=== PATIENT | female | born 1990 ===

== ENCOUNTER 2017-04-05 19:39 | Inpatient (IN) | payer MEDICAID, SELFPAY ==
[2017-04-05 19:48] VITALS: BMI 33.5
[2017-04-05] MEDS ORDERED: Oxytocin 30 UNITS in Sodium Chloride 0.9% 500 ML IV ONE (19:52)
[2017-04-05] MEDS ORDERED: Lactated Ringer's 1,000 ML IV SCH (20:00)
[2017-04-05 20:55] LABS: BASO # 0.1 K/uL (0.0-0.2); BASO % 1.1 % (0.0-2.0); EOS # 0.1 K/uL (0.0-0.7); EOS % 0.7 % (0.0-4.0); HEMATOCRIT 36.5 % (34.0-47.0); MEAN CELL VOLUME 98.2 fl (81.0-99.0); MEAN CORPUSCULAR HEMOGLOBIN 33.4 pg (27.0-31.0); MEAN PLATELET VOLUME 9.7 fl (7.2-11.7); MONO # 0.6 K/uL (0.0-0.8); MONO % 5.6 % (0.0-10.0); NEUT # 7.6 K/uL (1.8-7.0); NEUT % 73.6 % (50.0-75.0); RED CELL DISTRIBUTION WIDTH 13.5 % (11.5-14.5); WHITE BLOOD COUNT 10.4 K/uL (4.8-10.8)
[2017-04-05] MEDS: Lactated Ringer's 1,000 ML IV SCH ×2 (21:00→22:15)
[2017-04-05] MEDS ORDERED: Lidocaine 1% Inj (20ml) ONE (21:27)
--- NOTE | 2017-04-06 08:00 | OBHP ---
Datetime: 04/05/2017 20:26 IP Adm Impression: Term, intrauterine IP Admit Plan: Admit to unit; Initiate labor induction protocol; Observation/Evaluation Admit Comment, IP Provider: 26 y/o Female, , IUP@40wks, patient comes to L_D for IOL. Patient denies any LOF/BV. Admits good movement, and occasional CTXs. Patient denies any fever, chills , n/c, dysuria, discharge, pain, dyspnea, edema or chest pain. PNC: Dr. Vickers, [facility] PNL: GBS negative, HIV/RPR/HepB negative. Rubella equivocal, GC/Ch negative PNI: abnormal glucose test early in : controlled, started on diet, lost more than 15lbs a fter. Postive PAP for E6/7 PMH: pre-gestational DM class A1 (controlled, no meds). +PAP PSH: Lap Cholecystectomy 2014 OBGYN: , ABx2, SABx1, NVDx3 Allg: robitussin Meds: PNV SH: Denies alcohol, smoking and illicit drug use (former smoker) FH: Postive for DMII ROS: As per HPI VS: 150, 115/68 FHT: reassuring PE: Cephalic presentation on U/S Gravid uterus A/P: 26 y/o Female, , IUP@40wks, patient comes to L_D for IOL. - Admit patient to L_D - Cervidil - Labs - Monitor VS/FHT/NST Case discussed with Dr. Mitchell --- Stacie Lua, PGY-1 The patient was seen with the resident I agree with note Pelvic Type - PN: Adequate Extremities - PN: Normal Abdomen - PN: Normal Back - PN: Normal Breast - PN: Not Done Lungs - PN: Normal Heart - PN: Normal Thyroid - PN: Normal Neurologic - PN: Normal HEENT - PN: Normal General - PN: Normal FHR - Baseline A Provider: 150 Comments, ACOG Physical Exam: GBS negative, HIV/RPR/HepB negative. Rubella equivocal, GC/Ch negative EGA AdmitDate IP: 40.0 Vital Signs Provider: Reviewed; Within Normal Limits IP Indication for Induction: Not Applicable IP Chief Complaint: Scheduled induction of labor NICHD Variability Prov Fetus A: Moderate 6-25bpm NICHD Accel Fetus A IP Provider: 15X15 FHR Category Provider Fetus A: Category I NICHD Decel Fetus A IP Provider: None Genitourinary Exam: Normal DTRs - PN: Normal
[2017-04-06] MEDS ORDERED: Oxytocin 30 UNITS in Sodium Chloride 0.9% 500 ML IV ONE (08:09)
[2017-04-06] MEDS ORDERED: Oxycodone/Acetaminophen 5/325 mg Tab PO PRN ×2 (13:30)
[2017-04-07] MEDS ORDERED: Measles, Mumps, and Rubella 0.5 ML VIAL SC ONE (06:57)
--- NOTE | 2017-04-07 07:59 | OBPPN ---
Datetime: 04/07/2017 06:47 PP Pain Prov: Within normal limits PP Nausea Prov: Denies PP Flatus Prov: No PP BM Prov: No PP Heart Prov: Normal PP Lungs Prov: Normal PP Abdomen/Uterus Prov: Normal PP Lochia Prov: Normal PP Vulva/Perineum Prov: Normal PP Extremities Prov: Normal PP Progress Prov: Normal PP Impression Prov: Normal progression PP Plan Prov: Continue present management PP Progress Note Prov: PPD1 S: pt seen and examined bedside this AM. PPD1, s/p NVD. No acute overnight events. Admits mild edmond n. Pt is eating regular diet. Ambulating, voiding w/out any difficulty. Patient is her baby. -/- gas, BM. Denies fever, chills, headache, chest pain, dyspnea, palpitations, n/v/d/c and rem ains afebrile. O: VS stable GEN: NAD Cardio: S1S2 no M/G/R Resp: vesicular breathing b/l Abdomen: no tenderness to palpation. BS+, Fundus is firm, at the umbilicus Neuro: AAO x 3 Ext: no edema noted, no calf tenderness Assessment/Plan: 26 y/o female , delivered @ 40 wks to a female infant via NVD on 04/06/17. Doing well PPD1. OOB with caution Percocet 5/325mg 1-2 tablets po q6 for mod/sev pain Ibuprofen 600mg 1 tab Encourage and ambulation [place] 17.2mg PO qHS f/u Post op CBC --- Stacie Lua, PGY I OB Hospitalist Addendum: Pt seen and examined by me. Agree w/ above. PPD1 s/p VD, doing well, br east feeding. Continue current managment. (ES) IP PP Procedures: None Vital Signs Provider PP: Reviewed; Within Normal Limits
[2017-04-07] MEDS: Multivitamin With Minerals Tab PO SCH (08:18)
--- NOTE | 2017-04-07 08:26 | OBDS ---
DELIVERY PERSONNEL Delivery Doctor: Annie Chung MD Professor Of Latin American Studies: Montserrat Duncan RN Resident: Leobardo Lord PGY1 MATERNAL INFORMATION Delivery Anesthesia: None Medications in Delivery: 30 units pitocin in 500 ml lr Estimated Blood Loss (ml): 200 Placenta Cultured: No Maternal Complications: None Provider Comments: 26 y/o Female, @ 40.1wks IUP delivered a live baby girl on 04/06/17 @ 13:19. Baby was delivered in a controlled environment. Bulb suctioned at the perineum and placed on mothers abdomen. Cords were clamped and cut by FOB. Baby weight of 3080g and 9/9. There were no lacera tions noted. Placenta was delivered spontaneously at 13:25. Mother and baby both tolerated procedure well. Merari Risa, PGY I LABOR SUMMARY EDC: 04/05/2017 00:00 No. Babies in Womb: 1 Attempted: No Labor Anesthesia: None LABOR INFORMATION Reason for Induction: Not Applicable Onset of Labor: 03/30/2017 12:30 Complete Dilatation: 04/06/2017 13:15 Group B Beta Strep: Negative Antibiotics # of Doses: 0 Antibiotics Time of Last Dose: 0 Steroids Given: None Reason Steroids Not Administered: Not Applicable MEMBRANES Membranes Rupture Method: Spontaneous Rupture of Membranes: 04/06/2017 13:19 Length of Rupture (hrs): 0.00 Amniotic Fluid Color: Clear Amniotic Fluid Amount: Large Amniotic Fluid Odor: Normal STAGES OF LABOR Stage 1 hrs: 168 Stage 1 min: 45 Stage 2 hrs: 0 Stage 2 min: 4 Stage 3 hrs: 0 Stage 3 min: 6 Total Time in Labor hrs: 168 Total Time in Labor min: 55 VAGINAL DELIVERY Episiotomy: None Laceration Extension: N/A Laceration Type: None Sponge Count Correct: N/A Sharps Count Correct: N/A CSECTION DELIVERY Primary Indication: N/A Secondary Indication: N/A CSection Urgency: N/A CSection Incidence: N/A Labor: N/A Elective: N/A CSection Incision: N/A BABY A INFORMATION Delivery Date/Time: 04/06/2017 13:19 Method of Delivery: Vaginal Born in Route : No : N/A Forceps: N/A Vacuum Extraction: N/A Shoulder Dystocia : No SHOULDER DYSTOCIA BABY A Infant Delivery Date/Time: 04/06/2017 13:19 PRESENTATION/POSITION BABY A Presentation: Cephalic Cephalic Presentation: Vertex Vertex Position: Left Occipital Anterior Breech Presentation: N/A PLACENTA INFORMATION BABY A Placenta Delivery Time : 04/06/2017 13:25 Placenta Method of Delivery: Spontaneous Placenta Status: Delivered SCORES BABY A Heart Rate 1 min: >100 bpm Resp Effort 1 min: Good Cry Reflex Irritability 1 min: Cough or Sneeze or Pulls Away Muscle Tone 1 min: Active Motion Color 1 min: Body [place], Extremities Blue SCORE 1 MIN: 9 Heart Rate 5 min: >100 bpm Resp Effort 5 min: Good Cry Reflex Irritability 5 min: Cough or Sneeze or Pulls Away Muscle Tone 5 min: Active Motion Color 5 min: Body [place], Extremities Blue SCORE 5 MIN: 9 INFANT INFORMATION BABY A Gestational Age at Delivery: 40.1 Gestational Status: Term Infant Outcome : Liveborn Condition : Stable Infant Sex: Female IDENTIFICATION/MEDS BABY A ID Band Number: [id number] ID Band Location: Left Leg; Left Arm WEIGHT/LENGTH BABY A Birthweight (gms): 3080 Infant Weight (lb): 6 Infant Weight (oz): 13 CORD INFORMATION BABY A No. Cord Vessels: 3 Nuchal Cord : N/A Cord Blood Taken: Yes Infant Suction: Mouth; Nose ASSESSMENT BABY A Complications: None Physical Findings at Delivery: Within Normal Limits Infant Respirations: Appears Normal Director Strategy/ALS Called : No Care By: Monie Duncan Transferred To: Remains with Mother
[2017-04-07 09:18] LABS: BASO # 0.1 K/uL (0.0-0.2); BASO % 0.5 % (0.0-2.0); EOS # 0.1 K/uL (0.0-0.7); EOS % 0.7 % (0.0-4.0); HEMATOCRIT 33.3 % (34.0-47.0); LYMPH % 18.4 % (20.0-40.0); MEAN CELL VOLUME 98.1 fl (81.0-99.0); MEAN CORPUSCULAR HEMOGLOBIN 34.1 pg (27.0-31.0); MEAN CORPUSCULAR HGB CONC 34.8 g/dL (33.0-37.0); MEAN PLATELET VOLUME 9.8 fl (7.2-11.7); MONO # 0.5 K/uL (0.0-0.8); NEUT % 75.4 % (50.0-75.0); RED CELL DISTRIBUTION WIDTH 13.5 % (11.5-14.5); WHITE BLOOD COUNT 10.6 K/uL (4.8-10.8)
--- NOTE | 2017-04-08 09:50 | OBDCSUM ---
Datetime: 04/08/2017 07:40 Discharged to, Provider: Home Follow up at, Provider: [facility] Disch Instr Activity: Normal activity Disch Instr Diet: Regular Discharge Instructions, Provider: Routine instructions given Discharge Diagnosis, Provider: Term Delivered Follow up in weeks, Provider: on Contraception discussed, Prov: Yes Disch Activity Restrictions: No sexual activity; Nothing in vagina - [place], tampons, douche Discharge Comment, Provider: Discharge to home today PNV 1 PO qdaily Ibuprofen 600 mg 1 tab po prn q6 if moderate/severe pain Encourage and ambulatory Follow up at your clinic on 05/16/17 at 2 pm. OB Hospitalist on-call : On rounds this morning, I saw and examined this patient. Agree with note . MAHNDO Contraception after Delivery: Undecided
[2017-04-08] MEDS ORDERED: Measles, Mumps, and Rubella 0.5 ML VIAL SC ONE (10:00)
--- NOTE | 2017-04-08 12:47 | OBPPN ---
Datetime: 04/08/2017 10:10 PP Pain Prov: Within normal limits PP Nausea Prov: Denies PP Flatus Prov: Yes PP BM Prov: Yes PP Heart Prov: Normal PP Lungs Prov: Normal PP Abdomen/Uterus Prov: Normal PP Lochia Prov: Normal PP Vulva/Perineum Prov: Normal PP Extremities Prov: Normal PP Impression Prov: Normal progression PP Plan Prov: Discharge PP Progress Note Prov: pt seen and examined bedside this AM. PPD2 s/p NVD. No acute overnight events . Admits mild pain. Pt is eating regular diet. Ambulating, voiding w/out any difficulty. Patient is b reastfeeding her baby. Reports having BM. Denies fever, chills, headache, chest pain, dyspnea, palpi tations, n/v/d/c and remains afebrile. O: VS stable GEN: NAD Cardio: S1S2 no M/G/R Resp: vesicular breathing b/l Abdomen: no tenderness to palpation. BS+, Fundus is firm, at the umbilicus Neuro: AAO x 3 Ext: no edema noted, no calf tenderness Assessment/Plan: 26 y/o female , doing well PPD 2. Discharge to home today PNV 1 PO qdaily Ibuprofen 600 mg 1 tab po prn q6 if moderate/severe pain Encourage and ambulatory Follow up at your clinic on 05/16/17 at 2 pm[address] Case discussed with Dr Haile, attending telecommunications project manager. Shannan PGY-1 OB Hospitalist on-call : On rounds this morning, I saw and examined this patient. Agree with note . YUDI ANN PP Procedures: None
[2017-04-08] MEDS: Multivitamin With Minerals Tab PO SCH (14:05)
[2017-04-08 20:47] VITALS: BP 109/57; PULSE 72; RESP 20; TEMP 97.6; O2SAT 99
== END 2017-04-08 13:52 | disposition home or self-care (01) | DRG 775 ==
LOC: H.L&D 19:48 → H.OB/GYN 04-06 15:31
PROVIDERS: ADMIT Obstetrics & Gynecology Gynecology; ATTEND Obstetrics & Gynecology Gynecology
PROC: 4A1HXCZ Monitoring of Products of Conception, Cardiac Rate, External Approach (ICD-10-PCS; 2017-04-05)
PROC: 10E0XZZ Delivery of Products of Conception, External Approach (ICD-10-PCS; principal; 2017-04-06)
DX: O24.429 Gestational diabetes mellitus in childbirth, unspecified control (principal); O48.0 Post-term pregnancy; Z37.0 Single live birth; Z3A.40 40 weeks gestation of pregnancy; Z90.49 Acquired absence of other specified parts of digestive tract

== ENCOUNTER 2018-05-28 08:07 | Inpatient (IN) | payer MEDICAID, SELFPAY ==
[2018-05-28] MEDS ORDERED: Lactated Ringer's 1,000 ML IV ONE (08:35)
[2018-05-28 08:36] VITALS: BMI 35.2
[2018-05-28] MEDS ORDERED: Oxytocin 30 UNIT 30 UNITS/500 ML BAG IV ONE (08:45)
[2018-05-28] MEDS ORDERED: Lactated Ringer's 1,000 ML IV SCH (08:45)
[2018-05-28] MEDS ORDERED: OXYTOCIN/0.9 % NS 20 UNIT/1,000 ML BAG IV ONE (08:45)
[2018-05-28 09:15] LABS: BASO # 0.1 K/uL (0.0-0.2); BASO % 0.7 % (0.0-2.0); EOS # 0.2 K/uL (0.0-0.7); EOS % 1.9 % (0.0-4.0); HEMOGLOBIN 12.6 g/dL (12.0-16.0); LYMPH # 1.7 K/uL (1.0-4.3); LYMPH % 16.3 % (20.0-40.0); MEAN CELL VOLUME 97.5 fl (81.0-99.0); MEAN CORPUSCULAR HEMOGLOBIN 33.1 pg (27.0-31.0); MEAN CORPUSCULAR HGB CONC 33.9 g/dL (33.0-37.0); MEAN PLATELET VOLUME 9.3 fl (7.2-11.7); MONO # 0.5 K/uL (0.0-0.8); MONO % 5.3 % (0.0-10.0); NEUT # 7.8 K/uL (1.8-7.0); NEUT % 75.8 % (50.0-75.0); NRBC % 0.4 % (0.0-0.0); RBC 3.81 Mil/uL (3.80-5.20); RED CELL DISTRIBUTION WIDTH 13.9 % (11.5-14.5); WHITE BLOOD COUNT 10.3 K/uL (4.8-10.8)
[2018-05-28] MEDS ORDERED: Fentanyl/Bupivacaine HCl 250 ML EPI ONE (09:28)
[2018-05-28] MEDS ORDERED: Oxycodone/Acetaminophen 5/325 mg Tab PO PRN ×2 (09:38→13:06)
[2018-05-28] MEDS ORDERED: Benzocaine/Menthol SPRAY TOP PRN ×2 (09:38→13:06)
--- NOTE | 2018-05-28 10:10 | OBADHP ---
Datetime: 05/28/2018 09:14 Membranes, Provider: Bulging Gestation - Est Wks by US: 39.0 Vital Signs Provider: Reviewed; Within Normal Limits NICHD Decel Fetus A IP Provider: None Dilatation, Provider: 9 Datetime: 05/28/2018 08:55 Admit Comment, IP Provider: 27 y/o female at 39.0 wk GA presents to [facility] w/ painful contract ions. She denies vaginal bleeding, vaginal fluid loss, and endorses movement. She denies fevers , chills, headaches, SOB, CP, urinary symptoms. OB: [facility] OBhx: NVDx3, 3 abortions Pmhx: denies HomeRx: none Famhx: Mother w/ DM Socialhx: denies toxic habits Surghx: cholecystectomy 2013 Allergies: Guaifensin HPI negative except per HPI Physical Exam: Gen: no acute distress Heart: S1S2 present, RRR Lungs: normal breathing effort, clear to auscultation bilaterally Abd: Gravid, normal BS, soft, non-tender SVE: (By Dr. Ruby) /- Extremities: no swelling/tenderness/erythema Assessment and Plan 27 y/o female at 39.0 wk GA IUP GBS neg, HIV neg, RPR neg, Rubella immune SVE by Dr. Ruby 7cm/%/-1; Active Labor Admit patient to L_D CBC, type and screen NPO NST and toco monitor Can have epidural, anesthesiology consulted Case discussed w/ attending, Dr. Tung Menchaca, pgyi Addendum by Dr. Ruby: I have evaluated the patient independently and I agree with the above Pelvic Type - PN: Adequate Extremities - PN: Normal Abdomen - PN: Normal Back - PN: Not Done Breast - PN: Not Done Lungs - PN: Normal Heart - PN: Normal Thyroid - PN: Not Done Neurologic - PN: Not Done HEENT - PN: Not Done General - PN: Normal FHR - Baseline A Provider: 140 IP Hx Assessment: The History has been Reviewed and is Current IP Chief Complaint: Uterine contractions NICHD Variability Prov Fetus A: Moderate 6-25bpm NICHD Accel Fetus A IP Provider: 15X15 FHR Category Provider Fetus A: Category I Effacement, Provider: 70 Station, Provider: -1 Genitourinary Exam: Not Done DTRs - PN: Not Done EGA AdmitDate IP: 39.0 IP Adm Impression: Term, intrauterine IP Admit Plan: Admit to unit; Initiate labor protocol Datetime: 05/28/2018 08:20 Contraction Comments Provider: Q4-5mins
--- NOTE | 2018-05-28 10:19 | OBDS ---
DELIVERY PERSONNEL Delivery Doctor: Pastora Ruby MD Scrub Nurse: Kimberly Jimenez Family Services Worker: Kavita Aponte RN Resident: Dr. Menchaca MATERNAL INFORMATION Delivery Anesthesia: None Medications in Delivery: Pitocin 30 units Estimated Blood Loss (ml): 200 Placenta Cultured: No Provider Comments: of live female over intact perineum in YULIA presentation, followed by shoulders and rest of , light meconium noted, cord clamped and cut on mother's chest, cord bloo d obtained, placenta delivered spontaneously, fundus firm, EBL = 100mL, no repairs, pt tolerated proc edure LABOR SUMMARY EDC: 06/04/2018 00:00 No. Babies in Womb: 1 LABOR INFORMATION Onset of Labor: 05/28/2018 06:30 Group B Beta Strep: Negative STAGES OF LABOR Stage 3 hrs: 0 Stage 3 min: 2 Total Time in Labor hrs: 3 Total Time in Labor min: 2 BABY A INFORMATION Infant Delivery Date/Time: 05/28/2018 09:30 Method of Delivery: Vaginal Born in Route : No : N/A Forceps: N/A Vacuum Extraction: N/A Shoulder Dystocia : No SHOULDER DYSTOCIA BABY A Infant Delivery Date/Time: 05/28/2018 09:30 PRESENTATION/POSITION BABY A Presentation: Cephalic Cephalic Presentation: Vertex Breech Presentation: N/A PLACENTA INFORMATION BABY A Placenta Delivery Time : 05/28/2018 09:32 Placenta Method of Delivery: Spontaneous Placenta Status: Delivered SCORES BABY A Heart Rate 1 min: >100 bpm Resp Effort 1 min: Good Cry Reflex Irritability 1 min: Cough or Sneeze or Pulls Away Muscle Tone 1 min: Active Motion Color 1 min: Body [place], Extremities Blue Resuscitation Effort 1 min: Tactile Stimulation SCORE 1 MIN: 9 Heart Rate 5 min: >100 bpm Resp Effort 5 min: Good Cry Reflex Irritability 5 min: Cough or Sneeze or Pulls Away Muscle Tone 5 min: Active Motion Color 5 min: Body [place], Extremities Blue Resuscitation Effort 5 min: Tactile Stimulation SCORE 5 MIN: 9 INFORMATION BABY A Gestational Age at Delivery: 39.0 Gestational Status: Term Outcome : Liveborn Infant Condition : Stable Infant Sex: Female CORD INFORMATION BABY A Infant Suction: None
[2018-05-29 06:48] LABS: BASO % 0.4 % (0.0-2.0); EOS # 0.2 K/uL (0.0-0.7); EOS % 1.5 % (0.0-4.0); HEMOGLOBIN 10.6 g/dL (12.0-16.0); LYMPH # 2.9 K/uL (1.0-4.3); LYMPH % 26.5 % (20.0-40.0); MEAN CELL VOLUME 97.6 fl (81.0-99.0); MEAN CORPUSCULAR HEMOGLOBIN 33.7 pg (27.0-31.0); MEAN CORPUSCULAR HGB CONC 34.5 g/dL (33.0-37.0); MEAN PLATELET VOLUME 9.3 fl (7.2-11.7); MONO # 0.7 K/uL (0.0-0.8); MONO % 6.4 % (0.0-10.0); NEUT # 7.2 K/uL (1.8-7.0); NEUT % 65.2 % (50.0-75.0); RBC 3.14 Mil/uL (3.80-5.20); RED CELL DISTRIBUTION WIDTH 13.7 % (11.5-14.5)
--- NOTE | 2018-05-29 09:47 | OBPPN ---
Datetime: 05/29/2018 06:59 PP Pain Prov: Within normal limits PP Nausea Prov: Denies PP Flatus Prov: Yes PP BM Prov: No PP Breasts Prov: Not Done PP Heart Prov: Normal PP Lungs Prov: Normal PP Abdomen/Uterus Prov: Normal PP Lochia Prov: Normal PP Vulva/Perineum Prov: Not Done PP CVA Tenderness Prov: Normal PP Extremities Prov: Normal PP C/S Incision Prov: Not Applicable PP Progress Prov: Normal PP Impression Prov: Normal progression PP Plan Prov: Continue present management PP Progress Note Prov: 27 y/o , S/P on 05/28/18 PPD1 Patient seen and evaluated at bedside. Reports abdominal pain which is well controlled with pain m edications. w/o difficulties. Tolerating regular diet well. Lochia similar to menses. P assing flatus but no BM yet. Denies fever, chills, nausea, vomiting, diarrhea, CP, SOB. O: Vitally stable GEN: Patient is comfortable. In no acute distress. Cardio: S1S2, no murmurs, gallops or rubs. Lungs: clear air entry sounds b/l, no wheezing Abdomen: BS+, tenderness to palpation. Uterus is firm and at the level of the umbilicus. EXT: No edema, calves non-tender to palpation, Caleb's Negative Assessment/Plan: 27 y/o , S/P on 05/28/18. Pt remains afebrile, tolerating pain with medic ation, doing well on PPD1. OOB with caution - SCDs for DVT prophylaxis, encouraged ambulating - Percocet 5/325mg, and Motrin 600mg prn for pain. -Colace BID for constipation - Continue to encourage - f/u CBC post op: Pending - Continue present management. - Anticipated D/C, on 05/30/18 --- Reno Lua MD PGY-1 Patient seen and examined by me this am. Agree with above note however patient to use Motrin for a ny pain. Ambulation and encouraged. --Dr. Angelo Vital Signs Provider PP: Reviewed; Within Normal Limits
--- NOTE | 2018-05-30 11:30 | OBPPN ---
Datetime: 05/30/2018 06:34 PP Pain Prov: Within normal limits PP Nausea Prov: Denies PP Flatus Prov: Yes PP BM Prov: Yes PP Breasts Prov: Not Done PP Heart Prov: Normal PP Lungs Prov: Normal PP Abdomen/Uterus Prov: Normal PP Lochia Prov: Not Done PP Vulva/Perineum Prov: Not Done PP CVA Tenderness Prov: Normal PP Extremities Prov: Normal PP C/S Incision Prov: Not Applicable PP Progress Prov: Normal PP Impression Prov: Normal progression PP Plan Prov: Continue present management PP Progress Note Prov: 27 y/o , S/P on 05/28/18 PPD2 Patient seen and evaluated at bedside. Reports abdominal pain which is well controlled with pain m edications. w/o difficulties. Tolerating regular diet well. Lochia similar to menses. P assing flatus but no BM yet. Denies fever, chills, nausea, vomiting, diarrhea, CP, SOB. O: Vitally stable GEN: Patient is comfortable. In no acute distress. Cardio: S1S2, no murmurs, gallops or rubs. Lungs: clear air entry sounds b/l, no wheezing Abdomen: BS+, tenderness to palpation. Uterus is firm and at the level of the umbilicus. EXT: No edema, calves non-tender to palpation, Caleb's Negative Assessment/Plan: 27 y/o , S/P on 05/28/18. Pt remains afebrile, tolerating pain with medic ation, doing well on PPD2. OOB with caution - SCDs for DVT prophylaxis, encouraged ambulating - Percocet 5/325mg, and Motrin 600mg prn for pain. -Colace BID for constipation - Continue to encourage - f/u CBC post op: 10.6/30.7 - Continue present management. - Anticipated D/C today, on 05/30/18 -- Reno Lua MD PGY-1 The patient was seen with the resident I agree with the note Vital Signs Provider PP: Reviewed; Within Normal Limits
--- NOTE | 2018-05-30 11:30 | OBDCSUM ---
Datetime: 05/30/2018 11:03 Discharged to, Provider: Home Follow up at, Provider: [facility] clinic Disch Instr Activity: Normal activity Disch Instr Diet: Regular Discharge Time: 05/30/2018 11:03 Follow up in weeks, Provider: 4-6 weeks Disch Referrals: None Disch Activity Restrictions: No sexual activity; Nothing in vagina - [place], tampons, douche Discharge Comment, Provider: patient cleared for discharge Datetime: 05/30/2018 06:33 Discharged to, Provider: Home Follow up at, Provider: [facility] Disch Instr Activity: Normal activity; May Shower Disch Instr Diet: Regular Discharge Instructions, Provider: Routine instructions given Discharge Diagnosis, Provider: Term Delivered Follow up in weeks, Provider: 4-6 wks Disch Referrals: None Contraception discussed, Prov: Yes Disch Activity Restrictions: No exercising; No lifting; No sexual activity; Nothing in vagina - Inte rcourse, tampons, douche Discharge Comment, Provider: Discharge Summary DOA: 05/28/2018 EGA: 39 wks Diagnosis: Summary of : 27 y/o s/p L_D summary: Patient s/p . Pain was well controlled with pain meds. No nausea, advised to adva nce diet as tolerated. Passing flatus, had BM, voiding well w/o difficulties. Breast feeding without difficulty and supplementing with formula. Lochia is similar to menses volume. DOL: 05/28/18 at 9:32AM S/P NB: Female : 01[birth year] Weight: 3325 gm Lochia= menses, mild pain, controlled with medications Blood type: O+, Antibody Neg CBC pp: 10.6/30.7 Discharge Date: 05/30/2018 Time 10:00 AM Discharge Instructions: -Encourage -Encourage ambulation -Ibuprofen for pain PRN - ED precautions: If excessive bleeding, pain that does not get relief, fever >100.4, palpitations , SOB, CP or other concerning symptom go to the ED. - PT was urged if feeling sad, mood swing, depression, neglect of baby, suicidal thoughts, homicid al thoughts go to ER or call 911 for help - Pt should go to her Primary care doctor if have difficulty with breast feeding - F/U at [facility] in 4-6 week for checkup. -- Reno Lua MD, PGY-1 Addendum @ 10:49 - I have seen and examined the patient, I agree with the resident's assessment an d plan above. Patient is tolerating PO without difficulty, mild vaginal bleeding, exclusively . Eric ires Paragard for PP contraception, directed [facility] for consultation since she has [facility]. Exam Alert, oriented, no acute distress Abdomen soft, nondistended, nontender, fundus palpable well below umbilicus No LE edema/redness Moon Balderas MD OB Fellow Contraception after Delivery: Undecided
[2018-05-30 18:08] VITALS: BP 99/59; PULSE 86; RESP 20; TEMP 97.8
== END 2018-05-30 13:40 | disposition home or self-care (01) | DRG 560 ==
LOC: H.EROB2 08:07 → H.L&D 08:35 → H.OB/GYN 12:25
PROVIDERS: ADMIT Obstetrics & Gynecology; ATTEND Obstetrics & Gynecology
PROC: 10E0XZZ Delivery of Products of Conception, External Approach (ICD-10-PCS; principal; 2018-05-28)
DX: O77.0 Labor and delivery complicated by meconium in amniotic fluid (principal); K59.00 Constipation, unspecified; Z37.0 Single live birth; Z3A.39 39 weeks gestation of pregnancy